=== PATIENT | male | born 1990 | race Caucasian/White ===

== ENCOUNTER 2022-05-01 19:58 | Emergency (ER) | payer BC ==
[~2022-05-01] VITALS: Ht 198.1 cm; Wt 84.1 kg
[2022-05-01 20:29] VITALS: BP 132/83
[2022-05-01] MEDS ORDERED: hydrOXYzine 25 MG tablet PO ONE (20:55)
== END 2022-05-01 21:11 | disposition home or self-care (01) ==
LOC: ER 20:01
DX: R00.2 Palpitations (principal); M79.602 Pain in left arm; F41.9 Anxiety disorder, unspecified
CPT/HCPCS: 93005; 99283; Q0177